=== PATIENT | male | born 1980 ===

== ENCOUNTER 2016-08-20 18:38 | Emergency (ER) | payer MEDICAID ==
[2016-08-20 18:43] VITALS: O2SAT 96
[2016-08-20] MEDS ORDERED: ONDANSETRON 4 MG/2 ML VIAL IVP ONE (19:38)
[2016-08-20] MEDS ORDERED: NS 1,000 ML IV ONE (19:38)
--- NOTE | 2016-08-20 19:40 | EDPHY ---
H & P Time Seen by Provider: 08/20/16 19:20 HPI/ROS: CHIEF COMPLAINT: Rectal bleeding HISTORY OF PRESENT ILLNESS: 35-year-old man had acute upper GI bleed last July in 2015 when he was 1st seen at [facility] and then transferred to [facility] in [place] and had endoscopies. Patient did not have any other symptoms until today. He was not eating much over the last 2 days and drinking 6 beers a day and tonight noticed normal stool with some streaks of blood along with vomiting some dark material. No actual hematemesis and no melena. Patient presents concerned he had a recurrent bleed. No abdominal pain. Not lightheaded or dizzy. REVIEW OF SYSTEMS: Eye: no change in vision ENT: no sore throat Cardiac: no chest pain or syncope Pulmonary: no cough or SOB Abdomen: HPI Musculoskeletal: no back pain Skin: no rash Neuro: no headache Constitutional: no fever : no urinary symptoms A comprehensive 10 point review of systems is otherwise negative aside from elements mentioned in the history of present illness. PAST MEDICAL HISTORY: Upper GI bleed Social history: Beer today General Appearance: Alert and conversant, cooperative. Eyes: No scleral icterus. ENT, Mouth: Normal mucous membranes. Respiratory: Normal respiratory effort, breath sounds equal, lungs are clear to auscultation. Cardiovascular: Regular rate and rhythm. Gastrointestinal: Abdomen is soft and non tender. Rectal exam shows yellow brown stool sent to lab for Hemoccult, on a not ask appy and no blood seen proximal to the tip of the anoscope. There are inflamed internal hemorrhoids which are not actively bleeding. Neurological: Alert and oriented x3. Normally conversant. Face symmetric, normal movement and sensation in all extremities. Skin: Warm and dry, no rashes. Musculoskeletal: No peripheral edema and no joint swelling. Psychiatric: Not agitated. Emergency Department course/MDM: 1957: Labs reviewed. Likely internal hemorrhoids given bright rectal bleeding with normal stool, does not have a decrease in hematocrit, normal BUN creatinine ratio, negative fecal occult blood. I think acute upper GI bleed is unlikely. 2009: Results discussed, patient is stable for discharge. Smoking Status: Current every day smoker Constitutional: Initial Vital Signs Temperature (C) 36.9 C 08/20/16 18:40 Heart Rate 80 08/20/16 18:40 Respiratory Rate 18 08/20/16 18:40 Blood Pressure 113/66 08/20/16 18:40 O2 Sat (%) 96 08/20/16 18:40 O2 Delivery Mode Room Air Allergies/Adverse Reactions: acetaminophen [From Vicodin] Allergy (Mild, Verified 08/20/16 18:40) Rash hydrocodone [From Vicodin] Allergy (Mild, Verified 08/20/16 18:40) Rash Home Medications: Medication Instructions Recorded NK [No Known Home Meds] 08/20/16 Medical Decision Making Differential Diagnosis: Differential considered including but not limited to upper GI bleed, lower GI bleed, hemorrhoids, coagulopathy, anal fissure. - Data Points Laboratory Results: Laboratory Results 08/20/16 19:22 08/20/16 19:22 08/20/16 08/20/16 08/20/16 19:22 19:22 19:22 WBC 7.06 10^3/uL 10^3/uL (3.80-9.50) RBC 5.40 10^6/uL 10^6/uL (4.40-6.38) Hgb 17.4 g/dL g/dL (13.7-17.5) Hct 48.7 % % (40.0-51.0) MCV 90.2 fL fL (81.5-99.8) MCH 32.2 pg pg (27.9-34.1) MCHC 35.7 g/dL g/dL (32.4-36.7) RDW 11.7 % % (11.5-15.2) Plt Count 271 10^3/uL 10^3/uL (150-400) MPV 8.8 fL fL (8.7-11.7) Neut % (Auto) 57.1 % % (39.3-74.2) Lymph % (Auto) 34.1 % % (15.0-45.0) [place] % (Auto) 3.4 % L % (4.5-13.0) Eos % (Auto) 4.5 % % (0.6-7.6) Baso % (Auto) 0.6 % % (0.3-1.7) Nucleat RBC Rel Count 0.0 % % (0.0-0.2) Absolute Neuts (auto) 4.03 10^3/uL 10^3/uL (1.70-6.50) Absolute Lymphs (auto) 2.41 10^3/uL 10^3/uL (1.00-3.00) Absolute Monos (auto) 0.24 10^3/uL L 10^3/uL (0.30-0.80) Absolute Eos (auto) 0.32 10^3/uL 10^3/uL (0.03-0.40) Absolute Basos (auto) 0.04 10^3/uL 10^3/uL (0.02-0.10) Absolute Nucleated RBC 0.00 10^3/uL 10^3/uL (0-0.01) Immature Gran % 0.3 % % (0.0-1.1) Immature Gran # 0.02 10^3/uL 10^3/uL (0.00-0.10) Sodium 144 mEq/L mEq/L (134-144) Potassium 4.3 mEq/L mEq/L (3.5-5.2) Chloride 104 mEq/L mEq/L (97-110) Carbon Dioxide 21 mEq/l L mEq/l (22-31) Anion Gap 19 mEq/L H mEq/L (8-16) BUN 8 mg/dL mg/dL (7-23) Creatinine 1.0 mg/dL mg/dL (0.7-1.3) Estimated GFR > 60 Glucose 97 mg/dL mg/dL (70-100) Calcium 9.6 mg/dL mg/dL (8.5-10.4) Stool Occult Bld Scrn NEGATIVE (NEGATIVE) Medications Given: Discontinued Medications Sodium Chloride (Ns) 1,000 mls @ 0 mls/hr IV ONCE ONE PRN Reason: Wide Open Stop: 08/20/16 19:39 Last Admin: 08/20/16 19:55 Dose: 1,000 mls Ondansetron HCl (Zofran) 4 mg IVP EDNOW ONE Stop: 08/20/16 19:39 Last Admin: 08/20/16 19:55 Dose: 4 mg Departure - Departure Disposition: Home, Routine, Self-Care Clinical Impression: Hemorrhoids, internal Condition: Good Instructions: Hemorrhoids (ED) Referrals: AYDEE,UNKNOWN [Other] - As per Instructions Ellis Espinoza MD [Medical Doctor] - As per Instructions
[2016-08-20 19:51] LABS: ANION GAP 19 mEq/L (8-16); CALCIUM 9.6 mg/dL (8.5-10.4); CARBON DIOXIDE 21 mEq/l (22-31); CHLORIDE 104 mEq/L (97-110); GLOMERULAR FILTRATION RATE > 60; GLUCOSE 97 mg/dL (70-100); POTASSIUM 4.3 mEq/L (3.5-5.2); SODIUM 144 mEq/L (134-144)
[2016-08-20 19:55] LABS: % IMMATURE GRANULYOCYTES 0.3 % (0.0-1.1); ABSOLUTE IMMATURE GRANULOCYTES 0.02 10^3/uL (0.00-0.10); ADD DIFF? NO; ADD MORPH? NO; ADD SCAN? NO; ATYPICAL LYMPHOCYTE FLAG 10 (0-99); FRAGMENT RBC FLAG 0 (0-99); HEMATOCRIT 48.7 % (40.0-51.0); HEMOGLOBIN 17.4 g/dL (13.7-17.5); LEFT SHIFT FLG 0 (0-99); LIPEMIA HEMOLYSIS FLAG 90 (0-99); MEAN CELL HEMOGLOBIN 32.2 pg (27.9-34.1); MEAN CELL HEMOGLOBIN CONCENTR. 35.7 g/dL (32.4-36.7); MEAN CELL VOLUME 90.2 fL (81.5-99.8); MEAN PLATELET VOLUME 8.8 fL (8.7-11.7); PLATELET CLUMPS FLAG 10 (0-99); PLATELET COUNT 271 10^3/uL (150-400); RED CELL DISTRIBUTION WIDTH 11.7 % (11.5-15.2)
[2016-08-20 20:23] VITALS: BP 112/71; PULSE 70; RESP 16; TEMP 98.1
== END 2016-08-20 20:21 | disposition home or self-care (01) ==
DX: K64.8 Other hemorrhoids (principal); F17.200 Nicotine dependence, unspecified, uncomplicated
CPT/HCPCS: 96374; J2405